=== PATIENT | male | born 1950 | race Caucasian/White ===

== ENCOUNTER → 2017-04-09 | Day surgery (SDC) | payer MEDICARE, BC ==
[~2017-04-09] MED LIST: Lactated Ringers 500 ML IV SCH; Propofol 200 MG/20 ML SDV IV ONE
--- NOTE | 2017-04-09 12:35 | OR ---
DATE OF OPERATION: 04/09/2017 PREOPERATIVE DIAGNOSIS: SCREENING COLONOSCOPY. POSTOPERATIVE DIAGNOSIS: SCREENING COLONOSCOPY. SURGEON: Humble Castanon MD PROCEDURE: FULL-LENGTH COLONOSCOPY WITH POLYP REMOVAL X1. ANESTHESIA: CHUCKER. COMPLICATIONS: None. SPECIMEN: Ascending colon tubular adenoma. FINDINGS: 1. Full-length colonoscopy. 2. Extremely poor bowel prep. 3. Small tubular adenoma, mid ascending colon. RECOMMENDATIONS: Followup colonoscopy in 5 years. INDICATIONS: The patient was in for [employer] physical. We recommended a screening scope as this gentleman has never had one. DESCRIPTION OF PROCEDURE: The patient was prepped and draped, placed in the left lateral decubitus position. A lubricated Olympus colonoscope was inserted and with a lot of difficulty advanced to the cecum. Unfortunately had extremely poor prep. There was thick particulate stool throughout the entire length of the colon and many areas had to be irrigated immensely just to get through. We were able to get over to the right colon, where the scope got plugged repeatedly. We had to run a brush down both hands twice just to keep the scope clear so we could suction. I was able to get into the cecal pouch. It was filled with stool as well. Upon withdrawal in the mid ascending colon, the patient did have 1 small flat tubular adenoma along the haustral fold. I removed it with 3 separate cold forceps biopsies. No bleeding was found. The rest of the colon did not show any obvious polyps, masses, ulcerations or bleeding sites. I could not see any vascular abnormalities or signs of colitis. There were no obvious diverticula but as stated earlier many areas were impossible to visualize unless there was a larger mass. It would very well not be seen. The rectal vault appeared benign. Too much stool was present for safe retroflexion. Air was suctioned as best possible. Scope removed without complication. ARTHUR/GUEVARA /[id number]
== END ==
LOC: CC.SDS 09:08
PROVIDERS: ATTEND Family Medicine
DX: Z12.11 Encounter for screening for malignant neoplasm of colon (principal); D12.2 Benign neoplasm of ascending colon; N40.0 Benign prostatic hyperplasia without lower urinary tract symptoms; Z79.899 Other long term (current) drug therapy; Z98.890 Other specified postprocedural states; Z72.0 Tobacco use; Z12.5 Encounter for screening for malignant neoplasm of prostate
CPT/HCPCS: 00810; 36415; 45380; 80061; 82947; 86803; 88305; G0103; J2704; J7120